=== PATIENT | female | born 1975 | race Caucasian/White ===

== ENCOUNTER 2024-10-03 13:11 | Emergency (ER) | payer OTHER, SELFPAY ==
[2024-10-03 13:19] VITALS: BP 105/67; PULSE 79; TEMP 37.4; O2SAT 95; BMI 30.7
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
[2024-10-03 14:04] VITALS: O2SAT 99
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
[2024-10-03] MEDS: KETOROLAC TROMETHAMINE 60 MG/2 ML VIAL IM (14:55)
== END 2024-10-03 15:34 | disposition home or self-care (01) ==
PROVIDERS: Emergency Provider Emergency Medicine; Family Provider Family Medicine; PCP Family Medicine
DX: S16.1XXA Strain of muscle, fascia and tendon at neck level, initial encounter (principal); S80.12XA Contusion of left lower leg, initial encounter; S80.11XA Contusion of right lower leg, initial encounter; V49.49XA Driver injured in collision with other motor vehicles in traffic accident, initial encounter
CPT/HCPCS: 71046; 72125; 73030; 73590; 96372; 99285; J1885

== ENCOUNTER 2024-10-17 23:10 | Emergency (ER) | payer OTHER, SELFPAY ==
[2024-10-17 23:20] VITALS: BP 99/72; PULSE 88; TEMP 37.1; O2SAT 99; BMI 31.3
--- NOTE | 2024-10-17 23:31 | XR_ITS ---
The [address] [address] Patient Name: TOBIAS RAMIREZ MRN: [id number] date: 1975 Sex: F Assigned Patient Location: ED.MAIN Current Patient Location: ED.MAIN Accession/Order Number: [id number] Exam Date: 10/17/2024 23:54 Report Date: 10/17/2024 23:54 At the request of: EMANI VICK MD Procedure: XR knee RT 4V RIGHT KNEE - 4 views CLINICAL HISTORY: trauma COMPARISON: None FINDINGS: No fracture or dislocation. Joint spaces are preserved. Soft tissues unremarkable. No definite joint effusion. XR/XR knee RT 4V IMPRESSION: Negative acute osseous abnormalities Impression dictated by: Narendra Bonilla M.D. 10/17/2024 11:54 PM Dictation Location: [place] [address] Electronically authenticated by: [id number] Y Date: 10/17/2024 23:54
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
--- OUTSIDE RECORDS SUMMARY | 2024-10-17 23:35 | XMS_ITS | Encounter Summary ---
Author Organization [facility] Address [address] [facility] [place] [address] Care Team Providers Care Skin Care Instructor Name Role Phone Tawanda Rizvi MD Primary Care Provider [phone] Encounter Details Date Type Department Care Team (Late st Contact Info) Description 10/07/2024 Abstract [facility] [address] [place] [id number] Tawanda Rizvi MD [address] [facility] [address] [place], [place] [id number] Social History Tobacco Use Types Packs/Day Years Used Date Smoking Tobacco: Former Cigarettes Q uit: 2010 Smokeless Tobacco: Never Alcohol Use Standard Drinks/Week Comments Not Currently 0 (1 standard drink = 0.6 oz pure alcohol) Caffeine intake: coffee, soda PHQ-2 Answer Date Recorded Patient Health Questionnaire-2 Score 0 10/09/2024 Comments Unknown Sex and Gender Information Value Date Recorded Sex Assigned at Not on file Legal Sex Female 7:21 PM EDT Gender Identity Not on file Sexual Orientation Not on file documented as of this encounter Functional Status * Over the past 2 weeks, how often have you been bothered by any of the following problems? Question Answer Date of Assessment Author Little interest or pleasure in doing things Not at all 10/09/2024 1:27 PM EDT Jeannine Benítez LP N Feeling down, depressed, or hopeless Not at all 10/09/2024 1:27 PM EDT Jeannine Benítez LP N Patient Health Questionnaire -2 Score 0 10/09/2024 1:27 PM EDT Jackelin, Jeannine, LP N documented as of this encounter Plan of Treatment Not on file documented as of this encounter Visit Diagnoses Not on filedocumented in this encounter Care Teams Skin Care Instructor Relationship Specialty Start Date End Date Tawanda Rizvi MD [address] [facility] [address] [place] [address] PCP - General Family Medicine 07/25/22 documented as of this encounter
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
--- OUTSIDE RECORDS SUMMARY | 2024-10-17 23:35 | XMS_ITS | Encounter Summary ---
Author Organization [facility] Address [address] [facility] [address] Care Team Providers Care Pharm Spec Name Role Phone Tawanda Rizvi MD Primary Care Provider [phone] Encounter Details Date Type Department Care Team (Late st Contact Info) Description 10/07/2024 [facility] [address] [address] [place] [phone] Tawanda Rizvi MD [address] [facility] [address] [place], [place] [id number] Social History Tobacco Use Types Packs/Day Years [...] on filedocumented in this encounter Care Teams Pharm Spec Relationship Specialty Start Date End Date Tawanda Rizvi MD [address] [facility] [address] [place] [address] PCP - General Family Medicine 07/25/22 documented as of this encounter
--- OUTSIDE RECORDS SUMMARY | 2024-10-17 23:35 | XMS_ITS | Encounter Summary ---
Author Organization [facility] Address [address] [facility] [place] [address] Care Team Providers Care Commercial Reporter Name Role Phone Tawanda Rizvi MD Primary Care Provider [phone] Encounter Details Date Type Department Care Team (Late st Contact Info) Description 10/09/2024 Bamboo flowsheet [facility] [address] [facility] [address] [place] [phone] Charlene Angeles PA [address] [facility] [address] [place] [address] Social History Tobacco Use Types Packs/Day Years [...] on file documented as of this encounter Plan of Treatment Not on file documented as of this encounter Visit Diagnoses Not on filedocumented in this encounter Care Teams Commercial Reporter Relationship Specialty Start Date End Date Tawanda Rizvi MD [address] [facility] [address] [place] [address] PCP - General Family Medicine 07/25/22 documented as of this encounter
== END 2024-10-18 00:16 | disposition home or self-care (01) ==
PROVIDERS: Emergency Provider Emergency Medicine; Family Provider Family Medicine; PCP Family Medicine
DX: M23.91 Unspecified internal derangement of right knee (principal)
CPT/HCPCS: 73564; 99283